=== PATIENT | female | born 1985 | race Caucasian/White ===

== ENCOUNTER 2024-02-11 12:55 | Outpatient (REF) | payer BC, SELFPAY ==
[2024-02-13 09:31] LABS: Amphetamine Screen Urine Not Detected (Not Detect); Barbiturates, Urine Not Detected (Not Detect); Benzodiazepines Screen Urine Not Detected (Not Detect); Buprenorphine Scr Not Detected (Not Detect); Cannabinoid Screen Urine Not Detected (Not Detect); Cocaine Screen Urine Not Detected (Not Detect); Fentanyl, urine Not Detected (Not Detect); Methadone Screen, Urine Not Detected (Not Detect); Opiate Screen Urine Not Detected (Not Detect); Oxycodone Screen Urine Not Detected (Not Detect); Phencyclidine Screen Urine Not Detected (Not Detect)
== END 2024-02-11 12:56 | disposition home or self-care (01) ==
LOC: HO.LNP 12:55
PROVIDERS: Visit Provider Psychiatry & Neurology Psychiatry
DX: F12.90 Cannabis use, unspecified, uncomplicated (principal)
CPT/HCPCS: 80307

== ENCOUNTER 2024-02-26 10:45 | Outpatient (RCR) | payer BC, SELFPAY ==
[2024-02-11 12:19] VITALS: BP 110/68; PULSE 60; TEMP 36.8
[2024-02-11 12:22] VITALS: BMI 39.9
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
--- NOTE | 2024-02-12 15:09 | HO.PHP ---
Client's case has been opened and reviewed in treatment team.
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
--- NOTE | 2024-02-17 21:48 | P.PNPSP_ITS ---
Subjective Subjective Date of Service: 02/17/24 Reason For Visit: PTSD,anxiety,depression Interim History: Preoccupied with stressors, problems with sister and her kids. Very tearful, missing the kids, angry at sister. She notes today is her nephew's surgery appointment. Sister does not have a car. Patient has been reaching out to the sister who has not been returning calls. She expresses feeling abandoned and feels her sister is still angry at her and holding it against her for DCF i nvolvement. Feels conflicted about situation. Very emotional and volatile, emotional breakdowns. Sleep has been poor, trazodone makes her sluggish in am and not feeling well rested. she is anxious about starting a mood stabilizer and prefers plan of accessing a PRN medication for her anxiety and sleep in addition to starting Abilify, which she is somewhat reluctant and asking why ZOloft is not helping with mood stabilization. She endorses feelings of helplessness, transient hopelessness. Denies any thoughts of harming self or others. Denies any alcohol use or cravings to drink. Medication Compliance: Yes Side effects from medications: No Attending Groups: Yes Review of Systems Acute medical concerns: No Mental Status Exam Mental Status Exam Narrative: Alert, oriented, in no acute distress. Calm, cooperative, engaged. Eye contact maintained. Mood anxious, affect variable, mood congruent, labile. Speech normal. Thought process linear, coherent. Thought content related to stressors, +helplessness, transient hopelessness, denies SI.? No aggressive ideation or HI. No paranoia or delusional content elicited. No evidence of psychosis. Insight and judgment fair but adequate. Diagnostics Vital Signs (24Hr): BMI result Body Mass Index 39.9 Assessment & Plan Assessment & Plan (1) Other specified persistent mood disorders: Status: Acute Code(s): F34.89 - Other specified persistent mood disorders (2) Other disorder of impulse control: Status: Acute Code(s): F63.89 - Other impulse disorders (3) Generalized anxiety disorder: Status: Acute Code(s): F41.1 - Generalized anxiety disorder (4) Alcohol abuse: Status: Acute Code(s): F10.10 - Alcohol abuse, uncomplicated (5) Cannabis use, unspecified, uncomplicated: Status: Acute Code(s): F12.90 - Cannabis use, unspecified, uncomplicated Plan start aripiprazole 2 mg (start 1/2 tablet) start gabapentin 300-600 mg qhs sleep will consider starting amantadine vs modafinil in the next few days continue sertraline 200 mg qhs will try to transition off trazodone, continue 150 mg qhs for now continue other regular medication continue to monitor Patient educated on: diagnosis, medication risk/benefits and substance abuse Informed Consent: understands Reason for contiued partial hosp. stay Substantial Risk for: rapid decompensation and med/psych decompensation Certification I certify that partial hospital treatment is medically necessary due to the symptoms and problems resulting from the patient's mental illness and the failure to treat the patient at the partial hospital level of care would likely result in the patient requiring inpatient psychiatric care which could not be prevented at a less intensive level of care. Total time managing care of this patient today __30__ minutes. Discharge Plan Discharge Attending provider: Eneida Darby Medications: New aripiprazole 2 mg tablet 2 mg PO BEDTIME Qty: 30 0RF modafinil 100 mg tablet 100 mg PO QAM Qty: 14 0RF gabapentin 300 mg capsule 600 - 900 mg PO BEDTIME PRN (Reason: as directed for anxiety, sleep) Qty: 40 0RF Continued valacyclovir 500 mg tablet 500 mg PO DAILY PRN (Reason: Outbreak) famotidine 20 mg tablet 20 mg PO DAILY sertraline 200 mg Capsule 200 mg PO DAILY Discontinued trazodone 150 mg Tablet 150 mg PO BEDTIME omeprazole 20 mg capsule,delayed release(DR/EC) 20 mg PO DAILY Stand Alone Forms: Patient Portal Discharge page Patient Education: Gabapentin (By mouth), Aripiprazole (By mouth), Post Traumatic Stress Disorder (DC) Print Language: Turkish
--- NOTE | 2024-02-20 14:15 | HO.PHP ---
PHP staff member faxed over a referral for OP therapy for Morenita at the [facility]. PHP staff member is awating a response with scheduled appointment date and time.
--- NOTE | 2024-02-23 23:33 | P.PNPSP_ITS ---
Subjective Subjective Date of Service: 02/23/24 Reason For Visit: PTSD,anxiety,depression Interim History: Last week, I didnt make much progress Patient reports didn't start on Abilify yet. She has continued tinkering with the gabapentin and tried a few nights of 300 mg with an extra 300 mg for sleep and is now taking 600 mg for sleep. She is still not getting a full night sleep, and is unsure whether the gabapenting in doing muchh although thinks it may be working better at 600 mg than 300 mg. Denies any adverse effects. Still experiencing a lot of mood lability and anxiety and says she is just going to start the ABilify tonight. She denies any particular concerns, says she has just been wrapped up in family stuff, and is trying to focus on self care. She admits she is better able to manage her mood when she is here at the program, but feels like she falls apart when she leaves. Experiencing near panic symptoms any time the phone rings. Medication Compliance: Yes Side effects from medications: No Attending Groups: Yes Review of Systems Acute medical concerns: No Mental Status Exam Mental Status Exam Narrative: Alert, oriented, in no acute distress. Calm, cooperative, engaged. Eye contact maintained. Mood anxious, affect variable, mood congruent, labile. Speech normal. Thought process linear, coherent. Thought content related to stressors, +helplessness, transient hopelessness, denies SI.? No aggressive ideation or HI. No paranoia or delusional content elicited. No evidence of psychosis. Insight and judgment fair but adequate. 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 clinical presentation suggestive of ADHD (3) Generalized anxiety disorder: Status: Acute Code(s): F41.1 - Generalized anxiety disorder (4) Alcohol abuse: Status: Acute Code(s): F10.10 - Alcohol abuse, uncomplicated (5) Cannabis use, unspecified, uncomplicated: Status: Acute Code(s): F12.90 - Cannabis use, unspecified, uncomplicated Plan start aripiprazole 2 mg increase gabapentin to 900 mg qhs (if not further effective will discont) ?naltrexone start modafinil 50 mg qam continue sertraline 200 mg qhs will try to transition off trazodone, continue 150 mg qhs for now continue other regular medication continue to monitor Patient educated on: diagnosis, medication risk/benefits and substance abuse Informed Consent: understands Reason for contiued partial hosp. stay Substantial Risk for: rapid decompensation and med/psych decompensation Certification I certify that partial hospital treatment is medically necessary due to the symptoms and problems resulting from the patient's mental illness and the failure to treat the patient at the partial hospital level of care would likely result in the patient requiring inpatient psychiatric care which could not be p revented at a less intensive level of care. Total time managing care of this patient today __30__ minutes. Discharge Plan Discharge Attending provider: Eneida Darby Medications: New aripiprazole 2 mg tablet 2 mg PO BEDTIME Qty: 30 0RF modafinil 100 mg tablet 100 mg PO QAM Qty: 14 0RF gabapentin 300 mg capsule 600 - 900 mg PO BEDTIME PRN (Reason: as directed for anxiety, sleep) Qty: 40 0RF Continued valacyclovir 500 mg tablet 500 mg PO DAILY PRN (Reason: Outbreak) famotidine 20 mg tablet 20 mg PO DAILY sertraline 200 mg Capsule 200 mg PO DAILY Discontinued trazodone 150 mg Tablet 150 mg PO BEDTIME omeprazole 20 mg capsule,delayed release(DR/EC) 20 mg PO DAILY Stand Alone Forms: Patient Portal Discharge page Patient Education: Gabapentin (By mouth), Aripiprazole (By mouth), Post Traumatic Stress Disorder (DC) Print Language: [place] Telehealth Telehealth Telehealth Platform: Other (please specify) Location of provider rendering services: other (private office) Location of patient: other ([facility]) Patient Identification confirmed using: Name, : Yes Telehealth method: video Patient verbally consented to treatment: Yes
--- NOTE | 2024-02-24 22:14 | HO.PHPPROGNO ---
Subjective Subjective Date of Service: 02/24/24 Reason For Visit: PTSD,anxiety,depression Interim History: Checked in with patient, slept well last night. She did take gabapentin 900 mg, says she is not sure she whether it is having any affect so we agree to hold off from taking it for the next night or 2 to see if sleep is affected. She reports feeling a little less reactive since she has been getting some space with her sister. Mood okay when not affected by external factors or relationship problems. She has not started on the ABilify, after falling asleep last night. Did not take trazodone. SHe denies any SI, HI, AH, VH. SHe has not had any alcohol or substance use. Medication Compliance: Yes Side effects from medications: No Attending Groups: Yes Review of Systems Acute medical concerns: No Mental Status Exam Mental Status Exam Narrative: Alert, oriented, in no acute distress. Calm, cooperative, engaged. Eye contact maintained. Mood anxious, affect variable, mood congruent. Speech normal. Thought process linear, coherent. Thought content related to stressors, denies any helplessness, hopelessness or SI.? No aggressive ideation or HI. No paranoia or delusional content elicited. No evidence of psychosis. Insight and judgment fair but adequate. 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 clinical presentation suggestive of ADHD (3) Generalized anxiety disorder: Status: Acute Code(s): F41.1 - Generalized anxiety disorder (4) Alcohol abuse: Status: Acute Code(s): F10.10 - Alcohol abuse, uncomplicated (5) Cannabis use, unspecified, uncomplicated: Status: Acute Code(s): F12.90 - Cannabis use, unspecified, uncomplicated Plan start aripiprazole 2 mg hold gabapentin to 600-900 mg qhs (to determine whether helpful or not) pending [place] approval of modafinil 50 mg qam continue sertraline 200 mg qhs hold off trazodone continue other regular medication continue to monitor Patient educated on: diagnosis, medication risk/benefits and substance abuse Informed Consent: understands Reason for contiued partial hosp. stay Substantial Risk for: med/psych decompensation Certification I certify that partial hospital treatment is medically necessary due to the symptoms and problems resulting from the patient's mental illness and the failure to treat the patient at the partial hospital level of care would likely result in the patient requiring inpatient psychiatric care which could not be prevented at a less intensive level of care. Total time managing care of this patient today __30__ minutes. Discharge Plan Discharge Attending provider: Eneida Darby Medications: New gabapentin 300 mg capsule 300 mg PO BEDTIME Qty: 20 0RF aripiprazole 2 mg tablet 2 mg PO BEDTIME Qty: 30 0RF modafinil 100 mg tablet 100 mg PO QAM Qty: 14 0RF No Action valacyclovir 500 mg tablet 500 mg PO DAILY PRN (Reason: Outbreak) famotidine 20 mg tablet 20 mg PO DAILY trazodone 150 mg Tablet 150 mg PO BEDTIME omeprazole 20 mg capsule,delayed release(DR/EC) 20 mg PO DAILY sertraline 200 mg Capsule 200 mg PO DAILY Stand Alone Forms: Patient Portal Discharge page Print Language: Taiwanese
--- NOTE | 2024-02-26 21:33 | P.PNPSP_ITS ---
Subjective Subjective Date of Service: 02/26/24 Reason For Visit: PTSD,anxiety,depression Interim History: Patient seen for follow-up, anticipating discharge at the end of program today.? Slept good last night . Patient reports finally starting on the Abilify a few nights ago and has been doing fine with this. Denies any adverse effects. She initially did not sleep the night she held gabapentin so she started back on this last night and actually slept well. She was eager to start on modafinil however it is still pending PA approval and plans to discuss starting this with her provider. She is scheduled to start in a PTSD program on 03/02 but says she is having 2nd thoughts about this. She reports her mood is feeling better , anxiety is still there and has been trying to focus on coping skills to manage. Reports no acute issues or concerns.? Denies any hopelessness or SI. Denies thoughts of harming self or others at this time. Denies any aggressive ideation or HI. Denies any paranoia or AH or VH. Sleep, appetite, energy improving. Medication Compliance: Yes Side effects from medications: No Attending Groups: Yes Review of Systems Acute medical concerns: No Mental Status Exam Mental Status Exam Narrative: Alert, oriented, in no acute distress. Calm, cooperative, engaged. Eye contact maintained. Mood stable, affect variable, mood congruent, no notable lability.. Speech normal. Goal-directed, future-oriented, denies SI.? No aggressive ideation or HI. No paranoia or delusional content elicited. No evidence of psychosis. Insight and judgment fair but adequate. 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 clinical presentation suggestive of ADHD (3) Generalized anxiety disorder: Status: Acute Code(s): F41.1 - Generalized anxiety disorder (4) Alcohol abuse: Status: Acute Code(s): F10.10 - Alcohol abuse, uncomplicated (5) Cannabis use, unspecified, uncomplicated: Status: Acute Code(s): F12.90 - Cannabis use, unspecified, uncomplicated Plan Discharge from [facility] Continue regular medications Refills sent to pharmacy Will defer further medication management to outpatient provider *Safety plan reviewed *Discharge Diagnoses reviewed with patient, as well as treatment course, discharge plan (including medication regime, medication management, potential side effects) as well as treatment rationale were also revisited *If patient wishes, they are welcome to have their outpatient provider reach out to me for any further questions or clarification as pertains to this patient?s clinical care/treatment during their stay at [facility] (contact information provided to patient)? Patient educated on: diagnosis, medication risk/benefits and substance abuse Informed Consent: understands Reason for contiued partial hosp. stay Substantial Risk for: stable for discharge Certification I certify that partial hospital treatment is medically necessary due to the symptoms and problems resulting from the patient's mental illness and the failure to treat the patient at the partial hospital level of care would likely result in the patient requiring inpatient psychiatric care which could not be prevented at a less intensive level of care. Total time managing care of this patient today __30__ minutes. Discharge Plan Discharge Attending provider: Eneida Darby Medications: New aripiprazole 2 mg tablet 2 mg PO BEDTIME Qty: 30 0RF modafinil 100 mg tablet 100 mg PO QAM Qty: 14 0RF gabapentin 300 mg capsule 600 - 900 mg PO BEDTIME PRN (Reason: as directed for anxiety, sleep) Qty: 40 0RF Continued valacyclovir 500 mg tablet 500 mg PO DAILY PRN (Reason: Outbreak) famotidine 20 mg tablet 20 mg PO DAILY sertraline 200 mg Capsule 200 mg PO DAILY Discontinued trazodone 150 mg Tablet 150 mg PO BEDTIME omeprazole 20 mg capsule,delayed release(DR/EC) 20 mg PO DAILY Stand Alone Forms: Patient Portal Discharge page Patient Education: Gabapentin (By mouth), Aripiprazole (By mouth), Post Traumatic Stress Disorder (DC) Print Language: Hebrew
== END 2024-02-26 23:59 | disposition home or self-care (01) ==
LOC: HO.PHPA 10:45
PROVIDERS: Visit Provider Psychiatry & Neurology Psychiatry
DX: F34.89 Other specified persistent mood disorders (principal); F63.89 Other impulse disorders; F41.1 Generalized anxiety disorder; F10.10 Alcohol abuse, uncomplicated; F12.90 Cannabis use, unspecified, uncomplicated; Z79.899 Other long term (current) drug therapy
CPT/HCPCS: 90791; 90853